=== PATIENT | female | born 1990 | race Caucasian/White ===

== ENCOUNTER 2024-04-24 11:19 | Emergency (ER) | payer OTHER, SELFPAY ==
[2024-04-24 11:27] VITALS: BP 147/99; PULSE 74; TEMP 37.3; O2SAT 96; BMI 36.0
--- NOTE | 2024-04-24 11:34 | XR_ITS ---
The [address] [address] Patient Name: JILLIAN BROWNING MRN: [id number] date: 1990 Sex: F Assigned Patient Location: ER Current Patient Location: ED.MAIN Accession/Order Number: [id number] Exam Date: 04/24/2024 11:42 Report Date: 04/24/2024 12:46 At the request of: JOSE CHINO Procedure: XR knee RM 3V EXAMINATION: XR knee RM 3V HISTORY: pain COMPARISON: No relevant comparison available. FINDINGS: RIGHT FINDINGS: BONES: Normal. No significant arthropathy or acute abnormality. SOFT TISSUES: Negative. No visible soft tissue swelling. OTHER: Negative. LEFT FINDINGS: BONES: Normal. No significant arthropathy or acute abnormality. SOFT TISSUES: Negative. No visible soft tissue swelling. OTHER: Negative. XR/XR knee RM 3V IMPRESSION: No acute abnormality Electronically authenticated by: CAROLINE SORIANO Date: 04/24/2024 12:46
--- NOTE | 2024-04-24 11:57 | PC.NURSE ---
Pain to left knee, no known injury, no redness or swelling.
[2024-04-24 13:07] VITALS: BP 125/79; PULSE 56; O2SAT 99
[2024-04-24] MEDS: KETOROLAC TROMETHAMINE 30 MG/ML VIAL IM (13:08)
--- NOTE | 2024-04-24 14:12 | ED.GENADUL1 ---
HPI HPI - General Adult General Chief complaint: Extremity Problem, Nontraumatic Stated complaint: LOWER EXTREMITY PAIN Time Seen by Provider: 04/24/24 11:32 Source: patient Mode of arrival: walk-in Limitations: no limitations History of Present Illness HPI narrative: 33-year-old female to the emergency department chief plaint of bilateral knee pain. It has been ongoing since she was a teenager. She was told she had [place] disease. She reports the knee pain hurts worse when she is sitting for a long period of time. She is currently in rehab and has been focusing on the pain. She would like an x-ray and some medication to help with the discomfort. Related Data Home Medications ?Medication ?Instructions ?Recorded ?Confirmed aripiprazole 10 mg tablet (Abilify) 10 mg PO DAILY 04/24/24 04/24/24 buprenorphine 8 mg-naloxone 2 mg 1 film buccal DAILY 04/24/24 04/24/24 sublingual film (Suboxone) hydroxyzine pamoate 50 mg capsule 50 mg PO TID-QID PRN anxiety 04/24/24 04/24/24 sertraline 50 mg tablet (Zoloft) 25 mg PO DAILY 04/24/24 04/24/24 Previous Rx's ?Medication ?Instructions ?Recorded naproxen 500 mg tablet 500 mg PO BID PRN pain #14 tabs 04/24/24 Allergies Allergy/AdvReac Type Severity Reaction Status Date / Time No Known Drug Allergies Allergy Verified 04/24/24 11:30 Opioid HPI Opioid Management Most Recent Opioid Data: No Data to Display Review of Systems ROS Status of ROS 10 or more systems reviewed and unremarkable except as noted in history and below Exam Narrative Exam Narrative: VITALS: I have reviewed the triage vital signs. GENERAL: Well developed, well appearing adult in no acute distress. NEURO: Alert and oriented. Moves all extremities. Face is symmetric and expressive. EYES: PERRL. No scleral icterus or conjunctival injection. No discharge. HENT: Normocephalic, atraumatic. Hearing is grossly intact. Nares grossly patent and without discharge. Mucous membranes moist. NECK: No JVD. Patient moves neck without restriction. EXTREMITIES: Symmetric muscle bulk. No joint swelling. No clubbing, cyanosis, or deformity. DP and PT pulses intact. SKIN: Warm and dry. Normal turgor. No rash or lesions appreciated. PSYCH: Mood, affect, and interaction is appropriate to the setting. Constitutional Vital Signs, click to edit/add: Last Vital Signs Temp 99.1 F 04/24/24 11:27 Pulse 56 L 04/24/24 13:07 Resp 18 04/24/24 13:07 BP 125/79 04/24/24 13:07 Pulse Ox 99 04/24/24 13:07 O2 Del Method Room Air 04/24/24 11:27 Course Vital Signs Vital signs: Vital Signs Temperature 99.1 F 04/24/24 11:27 Pulse Rate 74 04/24/24 11:27 Respiratory Rate 18 04/24/24 11:27 Blood Pressure 147/99 H 04/24/24 11:27 Pulse Oximetry 96 04/24/24 11:27 Oxygen Delivery Method Room Air 04/24/24 11:27 Temperature 99.1 F 04/24/24 11:27 Pulse Rate 56 L 04/24/24 13:07 Respiratory Rate 18 04/24/24 13:07 Blood Pressure 125/79 04/24/24 13:07 Pulse Oximetry 99 04/24/24 13:07 Oxygen Delivery Method Room Air 04/24/24 11:27 Medical Decision Making MDM Narrative Medical decision making narrative: 33-year-old female to the emergency department chief complaint of knee pain. Vital stable, the patient is afebrile. She denies . Her knees are unremarkable on exam. No erythema, warmth, swelling. No point tenderness. X-rays are without acute findings. She is prescribed naproxen. She will follow-up with orthopedics. Patient was discharged home. Medical Records Medical records reviewed: Yes I reviewed the patient's medical records Imaging Data Bilateral knee x-ray: Radiologist's impression: ITS Impressions Knee X-Ray 04/24/24 11:34 IMPRESSION: No acute abnormality Electronically authenticated by: CAROLINE SORIANO Date: 04/24/2024 12:46 Discharge Plan Discharge Stand Alone Forms: Portal Instructions Chief Complaint: Extremity Problem, Nontraumatic Clinical Impression: Chronic knee pain Patient Disposition: Home, Self-Care Time of Disposition Decision: 12:59 Condition: Good Mode of Transportation: Private Vehicle Prescriptions / Home Meds: New naproxen 500 mg tablet 500 mg PO BID PRN (Reason: pain) Qty: 14 0RF No Action buprenorphine-naloxone [Suboxone] 8-2 mg film 1 film buccal DAILY sertraline [Zoloft] 50 mg tablet 25 mg PO DAILY aripiprazole [Abilify] 10 mg tablet 10 mg PO DAILY hydroxyzine pamoate 50 mg capsule 50 mg PO TID-QID PRN (Reason: anxiety) Print Language: Bel[place]ian Instructions: Knee Pain (ED) Additional Instructions: Call the office of your primary care doctor to arrange for follow-up within the above-stated timeframe. Your ED visit was focused on your acute issue and does not replace primary care. You should review your labs, imaging, and diagnoses from this ED visit with your primary care physician. There may be non-emergent/ incidental findings that need further evaluation. You should review your vital signs including blood pressure with your PCP. If you were prescribed medications you should discuss possible side-effects and drug interactions with your pharmacist. Call 911 or go to the nearest Emergency Department if you develop any new or worsening symptoms. Referrals: Physician,Non-Staff, [Primary Care Provider] - 1 week Alcides Spence MD [Physician] - 1 week Discharge Date/Time: 04/24/24 13:24
== END 2024-04-24 13:24 | disposition home or self-care (01) ==
PROVIDERS: Emergency Provider Student in an Organized Health Care Education/Training Program
DX: M25.562 Pain in left knee (principal); M25.561 Pain in right knee; G89.29 Other chronic pain
CPT/HCPCS: 73562; 96372; 99284; J1885